=== PATIENT | female | born 1960 | race Caucasian/White ===

== ENCOUNTER 2016-12-10 10:07 | Emergency (ER) | payer OTHER ==
[~2016-12-10] VITALS: Ht 162.6 cm; Wt 72.5 kg
[~2016-12-10 10:07] MED LIST: CIME400T PO; HYDR-3133 PO; Z.0.NO CURRENT MEDS
[2016-12-10 10:09] VITALS: BP 136/87; PULSE 92; RESP 18; TEMP 97.9; O2SAT 97
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
[2016-12-10] MEDS ORDERED: LEVO25TA4 PO (10:34)
[2016-12-10] MEDS ORDERED: CYCL5TAB PO (10:36)
== END 2016-12-10 11:00 | disposition home or self-care (01) ==
LOC: NEPK 10:07
DX: S16.1XXA Strain of muscle, fascia and tendon at neck level, initial encounter (principal); V59.40XA Driver of pick-up truck or van injured in collision with unspecified motor vehicles in traffic accident, initial encounter; Y92.488 Other paved roadways as the place of occurrence of the external cause
CPT/HCPCS: 99283